=== PATIENT | female | born 1960 | race Caucasian/White ===

== ENCOUNTER → 2017-07-22 | Outpatient (CLI) | payer OTHER ==
--- NOTE | 2017-07-23 09:28 | MM ---
Reason for exam: screening (asymptomatic). Last mammogram was performed 2 years and 7 months ago. History: Patient is postmenopausal. Family history of breast cancer in grandmother at age 100. Physical Findings: A clinical breast exam by your physician is recommended on an annual basis and results should be correlated with mammographic findings. MG 3D Screening Mammo W/Cad Bilateral CC and MLO view(s) were taken. Prior study comparison: December 06, 2014, bilateral MG screening mammo w CAD. June 24, 2012, bilateral digital screening mammo w/CAD. The breast tissue is extremely dense which could obscure a lesion on mammography. Finding: There are typically benign calcifications in both breasts. No significant changes in finding since December 06, 2014 and June 24, 2012. ASSESSMENT: Benign, BI-RAD 2 RECOMMENDATION: Routine screening mammogram of both breasts in 1 year.
== END ==
LOC: RADMAMWWP 13:33
PROVIDERS: ATTEND Family Medicine
DX: Z12.31 Encounter for screening mammogram for malignant neoplasm of breast (principal)
CPT/HCPCS: 77063; G0202

== ENCOUNTER → 2017-08-06 | Outpatient (CLI) | payer OTHER ==
--- NOTE | 2017-08-06 17:26 | CT ---
EXAMINATION TYPE: CT abdomen pelvis wo con DATE OF EXAM: 08/06/2017 COMPARISON: NONE HISTORY: Left sided flank pain with hematuria CT DLP: 970 mGycm Automated exposure control for dose reduction was used. TECHNIQUE: Helical acquisition of images was performed from the lung bases through the pelvis. FINDINGS: The lung bases are clear of infiltrate. There is no pleural effusion. Liver spleen pancreas gallbladder appear normal. Bile ducts are not dilated. There is no adrenal mass. Kidneys have normal size and contour. There is no hydronephrosis. There is no retroperitoneal adenopathy. There is no ascites. There are surgical clips in the right lower quadr ant probably from appendectomy. Appendix is not seen. There are numerous diverticula in the sigmoid colon. I see no sign of diverticulitis. There is no asc ites. There are multiple diverticula in the left colon. I see no bony destructive process. Bladder di stends smoothly. There is no sign of a pelvic mass. IMPRESSION: COLONIC DIVERTICULOSIS. NO EVIDENCE OF DIVERTICULITIS. NO EVIDENCE OF RENAL MASS OR OBSTRUCTION.
== END | disposition home or self-care (01) ==
LOC: RADCTMAIN 16:44
PROVIDERS: ATTEND Family Medicine
DX: K57.30 Diverticulosis of large intestine without perforation or abscess without bleeding (principal); N20.0 Calculus of kidney
CPT/HCPCS: 74176

== ENCOUNTER → 2019-01-21 | Outpatient (CLI) | payer OTHER | END | disposition home or self-care (01) | LOC: LABPAT 13:49 | PROVIDERS: ATTEND Orthopaedic Surgery | DX: Z01.812 Encounter for preprocedural laboratory examination (principal) | CPT/HCPCS: 86850; 86900; 86901; 87070 ==

== ENCOUNTER 2019-01-25 06:18 | Inpatient (IN) | payer OTHER ==
[2019-01-22 10:00] VITALS: BMI 33.1
--- NOTE | 2019-01-24 12:14 | HP ---
HISTORY AND PHYSICAL REASON FOR ADMISSION: Surgery is scheduled for 01/25/2019. Yolie Roldan is a 58-year-old patient seen with symptomatic right hip osteoarthritis. We discussed options regarding treatment. She elected to proceed with right total hip arthroplasty. Consent regarding the procedure was obtained. Medical clearance was provided by Dr. Mayer's office. PAST MEDICAL HISTORY: Hypertension, hyperlipidemia. PAST SURGICAL HISTORY: Cardiac catheterization, hysterectomy. DAILY MEDICATIONS: Amlodipine, aspirin, atenolol, atorvastatin, isosorbide. ALLERGIES: SULFA AND PLAVIX. SOCIAL HISTORY: She denies current tobacco use. PHYSICAL EXAMINATION: Evaluation of the right hip: There is diffuse tenderness. Limited range of motion with pain. Positive hip impingement sign. Straight leg raise negative. Distal neurovascular exam intact. RADIOGRAPHS: Right hip revealed moderate to severe osteoarthritic changes. IMPRESSION: 1. Right hip osteoarthritis. 2. Hypertension. 3. Hyperlipidemia. 4. Coronary artery disease. PLAN: Direct anterior right total hip arthroplasty. Surgery scheduled for 01/25/2019. MMODL / IJN: [id number] /
[~2019-01-25 06:18] MED LIST: ACETAMINOPHEN TAB 500 MG TAB PO ONE; DEXAMETHASONE SOD PHOSPHATE 10 MG/ML 1 ML VIAL IV ONE; HYDROmorphone 0.5 MG/0.5 ML SYRINGE IVP PRN; LACTATED RINGERS 1,000 ML IV SCH; MELOXICAM 7.5 MG TAB PO ONE; MIDAZOLAM 2 MG/2 ML VIAL IV PRN; ONDANSETRON 4 MG/2 ML VIAL IVP ONE; SCOPOLAMINE 1.5MG/72HR PATCH TRANSDERM ONE; TRANEXAMIC ACID 1,000 MG in SODIUM CHLORIDE 0.9% 100 ML IVPB ONE; ceFAZolin IN SWFI 2 GM/20 ML SYRINGE IVP ONE
[2019-01-25] MEDS ORDERED: LIDOCAINE 1% 20 ML VIAL (10MG/ML) FOR IV START INTRADERMA ONE (07:01)
[2019-01-25] MEDS ORDERED: PROPOFOL 10 MG/ML 20 ML VIAL IV ONE (07:29)
[2019-01-25] MEDS ORDERED: SODIUM CHLORIDE 0.9% 100 ML BAG ONE (07:29)
[2019-01-25] MEDS ORDERED: ePHEDrine SULFATE/0.9% NACL/PF 50 MG/5 ML SYRINGE IV ONE (07:29)
[2019-01-25] MEDS ORDERED: TRANEXAMIC ACID 1,000 MG/10 ML VIAL ONE (07:29)
[2019-01-25] MEDS ORDERED: MIDAZOLAM 2 MG/2 ML VIAL ONE (07:29)
[2019-01-25] MEDS ORDERED: fentaNYL (PF) 50 MCG/ML 2 ML AMP ONE (07:29)
[2019-01-25] MEDS ORDERED: ceFAZolin 3,000 MG in SODIUM CHLORIDE 0.9% IRRIGATIO 3,000 ML IRRIGATION ONE (08:37)
[2019-01-25] MEDS ORDERED: ROPIVACAINE 246.25 MG, EPINEPHrine 0.5 MG, KETOROLAC 30 MG, WATER FOR INJECTION,STERILE... MISCELLANE ONE ×4 (08:48)
[2019-01-25] MEDS ORDERED: LACTATED RINGERS 1,000 ML IV ONE (09:03)
[2019-01-25] MEDS ORDERED: HYDROmorphone 0.5 MG/0.5 ML SYRINGE IVP PRN ×2 (09:32)
[2019-01-25] MEDS ORDERED: HYDROmorphone 1 MG/ML 1 ML SYRINGE IVP PRN (09:32)
[2019-01-25] MEDS ORDERED: traMADol 50 MG TAB PO PRN (09:32)
[2019-01-25] MEDS ORDERED: HYDROcodone/APAP 7.5-325MG 1 EACH TAB PO PRN (09:32)
[2019-01-25] MEDS ORDERED: NALOXONE 0.4 MG/ML 1 ML VIAL IV PRN (09:32)
[2019-01-25] MEDS ORDERED: ONDANSETRON 4 MG/2 ML VIAL IVP PRN (09:32)
--- NOTE | 2019-01-25 09:32 | P.OP ---
Date of Procedure: 01/25/19 Preoperative Diagnosis: Right hip osteoarthritis Postoperative Diagnosis: Same Procedure(s) Performed: Direct anterior right total hip arthroplasty Implants: 1. Depuy Corail KA size 10 with collar press-fit femoral stem 2. Depuy pinnacle 54 mm press-fit acetabular shell 3. Depuy pinnacle polyethylene acetabular liner neutral 54 mm OD 36 mm ID 4. Biolox delta ceramic femoral head +1.5 36 mm Anesthesia: local, spinal Surgeon: Xavi Navarro [employer] #1: Joce Trinh Estimated Blood Loss (ml): 100 Pathology: other (Femoral head) Condition: stable Disposition: PACU Indications for Procedure: 58-year-old patient seen with symptomatic right hip osteoarthritis. After having treatment options discussed, she elected to proceed with total hip arthroplasty. Operative Findings: See description of procedure Description of Procedure: The patient was taken to the operative suite. Patient underwent a spinal anesthetic by the department of anesthesia. Patient was then transferred to the Ray table. Patient was given preoperative IV antibiotics and TXA. Both lower extremities were placed in standard leg spars. The hip was then prepped and draped in the normal sterile orthopedic fashion. A standard anterior incision was made beginning 3 cm lateral and 1 cm distal to the ASIS extending 10 cm. Dissection was then carried down through the subcutaneous soft tissues down to the fascia overlying the tensor fascia dipak. An incision was now made through the fascia. Careful dissection was taken down exposing the tensor fascia dipak muscle. A Cobra retractor was now placed along the medial femoral neck and a second one along the lateral femoral neck. The venous circumflex vessels were now identified, cauterized and clipped. We identified the anterior hip capsule. An incision was made through the hip capsule along the lateral border. I performed a partial anterior capsulectomy. Retractors were now placed around the femoral neck itself. A femoral neck cut was now made with a sagittal saw. It was completed with an osteotome at the lateral neck area. The femoral head was now removed without difficulty. The extremity was now rotated to 45 of external rotation. It was locked in position. Residual labrum was now debrided out. Serial reaming was performed of the acetabulum while Jose Miguel CAMPOS assisted holding an anterior retractor for exposure. Once we reached the appropriate size and a trial was position and fit nicely. The appropriate size was now chosen opened and made available. It was introduced into the acetabulum without difficulty. The C-arm/fluoroscopy was now brought into the operative field. We made sure we had a true AP pelvic view. We now under direct C- arm/fluoroscopy introduced into the acetabular component with appropriate version and inclination. I held the cup in appropriate position well Jose Miguel CAMPOS used a mallet to seat the acetabular component. I noted the component now to be well seated and stable. Acetabular cup introduce her was removed. The C-arm was pulled back. An appropriate liner was introduced and clicked into position. It was felt to be stable. At this point retractors were removed. The extremity was now placed into 130 external rotation with no traction. The leg was now dropped to the ground and adducted. Appropriate retractors were now positioned along the proximal femur. We also placed our femoral look into position. Additional capsular releasing was performed to gain access to the proximal femur. We now used a box osteotome. A canal finder was now utilized. Serial broaching was now performed with the assistance of Jose Miguel CAMPOS tapping the broaches down with a mallet while held the broach in appropriate rotation and position. This was done until we reached the appropriate size with good overall rotational stability. Appropriate calcar planing was performed. A trial head/neck was placed into position. The hip was now reduced. The C-arm/fluoroscopy was brought back into the operative field. A spot film was obtained of the nonoperative hip. A spot film was obtained of the trial components. Overlays were performed, we noted good overall alignment and positioning for determining leg length. The C-arm/fluoroscopy was pulled back. Retractors were repositioned and the hip was dislocated. The leg was again taken down to the ground and adducted. Appropriate retractors were repositioned as well as the femoral hook. All trial components were removed. The femoral implant was opened along with the femoral head. The femoral implant was introduced on the appropriate handle into our pre-broached area. I held the component position well Jose Miguel CAMPOS used a mallet to seat the femoral component. The femoral component was now noted to be well seated and stable.. The femoral head was introduced with good positioning and fixation noted. Retractors were now removed. The hip was now reduced. There appeared be good positioning of the hip confirmed on intraoperative fluoroscopy. Spot films were obtained to document this. A second gram of TXA was given. The deep and superficial soft tissues were infiltrated with local analgesic. Bipolar cautery had been utilized intermittently through the procedure for hemostasis. The wound was irrigated copiously with pulse lavage mechanical irrigation. The fascia was repaired with Vicryl suture. The subcutaneous soft tissues were repaired in layers with Vicryl suture. The skin was approximated with pernio/Dermabond. Sterile dressings were applied. Patient was then awakened, transferred to a bed and taken to recovery in stable condition. Jose Miguel CAMPOS assisted with the complex procedure.
--- NOTE | 2019-01-25 11:04 | FL ---
Fluoroscopy HISTORY: Anterior right hip replacement 12 seconds fluoroscopy time supplied to the referring clinician. 1 intraoperative C-arm images docum ent the procedure. See dictated report from orthopedic surgery.
--- NOTE | 2019-01-25 11:04 | XR ---
Limited right hip HISTORY: Anterior hip replacement Single intraoperative C-arm image documents the procedure.
[2019-01-25] MEDS: LACTATED RINGERS 1,000 ML IV SCH ×2 (12:36→21:34)
--- NOTE | 2019-01-25 12:48 | P.CONS ---
History of Present Illness - Reason for Consult Consult date: 01/25/19 Medical management Requesting physician: Xavi Navarro - Chief Complaint Right total hip arthroplasty - History of Present Illness This is a 58-year-old female, patient of [facility]. She has a known past medical history of coronary artery disease with previous cardiac stents, myocardial infarction, hypertension, hyperlipidemia and nicotine dependence. Patient has been suffering with right hip pain and known osteoarthritis of the right hip underwent direct anterior approach of the right total hip arthroplasty with Dr. Navarro. Tolerated surgery well with no complications. She had 100 ML estimated blood loss. We have been consulted for medical management. Patient lying in bed comfortably. She is complaining of some pain today that's beginning in the right thigh area. She denies any chest pain or shortness of breath, nausea or vomiting, bowel movement changes or urinary symptoms. Review of Systems Please refer to HPI otherwise unremarkable Past Medical History Past Medical History: Coronary Artery Disease (CAD), Cancer, Eye Disorder, Hyperlipidemia, Hypertension, Myocardial Infarction (AR), Osteoarthritis (OA) Additional Past Medical History / Comment(s): HX GLAUCOMA, skin cancer. Last Myocardial Infarction Date:: 2001 History of Any Multi-Drug Resistant Organisms: None Reported Past Surgical History: Appendectomy, Ear Surgery, Heart Catheterization With St ent, Hysterectomy Additional Past Surgical History / Comment(s): STENT X3, skin cancer removed from left calf. Past Anesthesia/Blood Transfusion Reactions: No Reported Reaction Date of Last Stent Placement:: 06/2009 Past Psychological History: No Psychological Hx Reported Smoking Status: Current every day smoker Past Alcohol Use History: Occasional Additional Past Alcohol Use History / Comment(s): STARTED SMOKING ON AND OFF AT AGE 16, QUIT ONCE FOR 15 YRS. Has been smoking again for the last 4 yrs, 10 ciagrettes per day. Past Drug Use History: None Reported - Past Family History Mother Family Medical History: No Reported History Medications and Allergies Home Medications Medication Instructions Recorded Confirmed Type Ascorbic Acid [Vitamin C] 500 mg PO DAILY 07/19/15 01/25/19 History Atenolol 50 mg PO BID 07/19/15 01/25/19 History Atorvastatin [Lipitor] 20 mg PO HS 07/19/15 01/25/19 History Echinacea 400 mg PO DAILY 07/19/15 01/25/19 History Isosorbide Mononitrate [Isosorbide 30 mg PO QAM 07/19/15 01/25/19 History Mononitrate ER] Lisinopril 40 mg PO QAM 07/19/15 01/25/19 History Vitamin E (Dl,Tocopheryl Acet) 400 unit PO DAILY 08/13/17 01/25/19 History [Vitamin E] Aspirin [Adult Low Dose Aspirin EC] 81 mg PO DAILY 01/22/19 01/25/19 History amLODIPine [Norvasc] 5 mg PO HS 01/25/19 01/25/19 History Allergies Allergy/AdvReac Type Severity Reaction Status Date / Time clopidogrel bisulfate Allergy Rash/Hives Verified 01/25/19 11:53 [From Plavix] Sulfa (Sulfonamide Allergy Rash/Hives Verified 01/25/19 11:53 Antibiotics) Physical Exam Vitals: Vital Signs Temp Pulse Pulse Resp BP BP Pulse Ox 01/25/19 10:15 51 L 16 107/65 91 L 01/25/19 10:01 50 L 16 109/64 92 L 01/25/19 09:47 97 F L 53 L 16 106/63 94 L 01/25/19 06:53 97.9 F 52 L 18 134/68 97 Intake and Output 01/24/19 01/25/19 01/25/19 22:59 06:59 14:59 Intake Total 1501 Output Total 100 Balance 1401 Intake: IV 1501 Output: Estimated Blood Loss 100 Head normocephalic Neck supple Lungs clear to auscultation bilaterally no wheezing or crackles Heart regular rate and rhythm S1-S2, no rub or gallop Abdomen is soft nontender nondistended positive bowel sounds no hepatosplenomegaly Extremities no edema. Right hip dressing clean dry and intact. SCDs in place bilaterally Neuro alert and orientated to 3 Assessment and Plan Assessment: 1. Right hip osteoarthritis status post right total hip arthroplasty: Continue Lovenox for DVT prophylaxis, continue pain control per protocol. Continue PT OT 2. Essential hypertension: Systolic blood pressure 130s on room. We'll resume patient's lisinopril and Norvasc and metoprolol. Parameters placed around medications. 3. History of myocardial infarction 4. History of coronary artery disease with previous cardiac stents. Last was placed in 2008 5. Nicotine dependence: Discussed smoking cessation for greater than 3 minutes. Patient is trying to quit she smokes only occasionally now. Declines nicotine patch at this time GI prophylaxis Pepcid and DVT prophylaxis subcu Lovenox Thank you for this consultation. We will continue to follow along during patient's hospitalization. We will check CBC and CMP in a.m. Time with Patient: Greater than 30 (Greater than 50% of the total time spent in counseling and coordination of care.I performed an examination of the patient and discussed their management with the physician Vp Site. I have reviewed the Physician Vp Site's notes and agree with the documented findings and plan of care)
[2019-01-25] MEDS: HYDROcodone/APAP 7.5-325MG 1 EACH TAB PO PRN ×2 (16:29→23:07)
[2019-01-25] MEDS: ceFAZolin IN SWFI 2 GM/20 ML SYRINGE IVP SCH ×2 (16:30→23:07)
[2019-01-25] MEDS: ATENOLOL 50 MG TAB PO SCH (20:22)
[2019-01-25] MEDS ORDERED: ATORVASTATIN 20 MG TAB PO SCH (21:00)
[2019-01-25] MEDS ORDERED: SENNOSIDES-DOCUSATE SODIUM 1 EACH TAB PO SCH (21:00)
[2019-01-25] MEDS ORDERED: amLODIPine 5 MG TAB PO SCH (21:00)
[2019-01-26 07:37] LABS: Basophils % (A) 0 %; Eosinophils % (A) 0 %; HCT 38.2 % (34.0-46.0); HGB 12.6 gm/dL (11.4-16.0); Lymphocytes # (A) 0.9 k/uL (1.0-4.8); Lymphocytes % (A) 9 %; MCH 30.5 pg (25.0-35.0); MCV 92.7 fL (80.0-100.0); Mean Platelet Volume 7.9; Monocytes # (A) 0.6 k/uL (0-1.0); Monocytes % (A) 5 %; Neutrophils # (A) 8.9 k/uL (1.3-7.7); Neutrophils % (A) 85 %; Platelet Count 156 k/uL (150-450); RBC 4.13 m/uL (3.80-5.40); RDW 14.1 % (11.5-15.5); WBC 10.5 k/uL (3.8-10.6)
[2019-01-26 07:54] LABS: ALT 36 U/L (9-52); AST 60 U/L (14-36); Albumin 3.6 g/dL (3.5-5.0); Alkaline Phosphatase 73 U/L (38-126); Anion Gap 5 mmol/L; Blood Urea Nitrogen 12 mg/dL (7-17); Calcium 9.2 mg/dL (8.4-10.2); Carbon Dioxide 26 mmol/L (22-30); Chloride 109 mmol/L (98-107); Glucose 106 mg/dL (74-99); Potassium 4.4 mmol/L (3.5-5.1); Sodium 140 mmol/L (137-145); Total Bilirubin 0.5 mg/dL (0.2-1.3); Total Protein 5.7 g/dL (6.3-8.2)
[2019-01-26] MEDS: ATENOLOL 50 MG TAB PO SCH (07:59)
[2019-01-26] MEDS: HYDROcodone/APAP 7.5-325MG 1 EACH TAB PO PRN ×2 (07:59→13:43)
[2019-01-26 08:27] VITALS: BP 144/74; PULSE 56; RESP 16; TEMP 98.6
[2019-01-26] MEDS ORDERED: ENOXAPARIN 40 MG/0.4 ML SYRINGE SQ SCH (09:00)
[2019-01-26] MEDS ORDERED: MELOXICAM 7.5 MG TAB PO SCH (09:00)
[2019-01-26] MEDS ORDERED: ISOSORBIDE MONONITRATE ER 30 MG TAB.ER.24H PO SCH (09:00)
[2019-01-26] MEDS ORDERED: LISINOPRIL 20 MG TAB PO SCH (09:00)
[2019-01-26] MEDS ORDERED: ASCORBIC ACID 500 MG TAB PO SCH (09:00)
[2019-01-26] MEDS ORDERED: FAMOTIDINE 20 MG TAB PO SCH (09:00)
[2019-01-26] MEDS ORDERED: VITAMIN E (DL,TOCOPHERYL ACET) 400 UNIT CAP PO SCH (09:00)
--- NOTE | 2019-01-26 11:04 | P.PN ---
Subjective Progress Note Date: 01/26/19 This is a 58-year-old female, patient of [facility]. She has a known past medical history of coronary artery disease with previous cardiac stents, myocardial infarction, hypertension, hyperlipidemia and nicotine dependence. Patient has been suffering with right hip pain and known osteoarthr itis of the right hip underwent direct anterior approach of the right total hip arthroplasty with Dr. Navarro. Tolerated surgery well with no complications. She had 100 ML estimated blood loss. We have been consulted for medical management. Patient lying in bed comfortably. She is complaining of some pain today that's beginning in the right thigh area. She denies any chest pain or shortness of breath, nausea or vomiting, bowel movement changes or urinary symptoms. 01/26/2019 patient reports pain is controlled. She has worked with physical therapy. They're anticipating discharge this afternoon. She denies any chest pain or shortness breath. Denies any nausea or vomiting. Denies any urinary symptoms. Reports passing gas no bowel movement yet. Objective - Vital Signs Vital signs: Vital Signs Temp 98.6 F 01/26/19 07:37 Pulse 56 L 01/26/19 07:37 Resp 16 01/26/19 07:37 BP 144/74 01/26/19 07:37 Pulse Ox 95 01/26/19 07:37 Intake & Output 01/25/19 01/26/19 01/26/19 18:59 06:59 18:59 Intake Total 1741 1060 240 Output Total 100 Balance 1641 1060 240 Intake: IV 1501 Intake, IV Titration 80 Amount Lactated Ringers 1,000 ml 80 @ 80 mls/hr IV .[id number] [facility] Rx#:[id number] Oral 240 980 240 Output: Estimated Blood Loss 100 Other: Voiding Method Toilet # Voids 2 2 - Exam Head normocephalic Neck supple Lungs clear to auscultation bilaterally no wheezing or crackles Heart regular rate and rhythm S1-S2, no rub or gallop Abdomen is soft nontender nondistended positive bowel sounds no hepatosplenomegaly Extremities no edema right hip incision bruising noted no evidence of cellulitis or drainage Neuro alert and orientated to 3 - Labs CBC & Chem 7: 01/26/19 07:06 01/26/19 07:06 Labs: Abnormal Lab Results - Last 24 Hours (Table) 01/26/19 01/26/19 Range/Units 07:06 07:06 Neutrophils # 8.9 H (1.3-7.7) k/uL Lymphocytes # 0.9 L (1.0-4.8) k/uL Chloride 109 H (98-107) mmol/L Glucose 106 H (74-99) mg/dL AST 60 H (14-36) U/L Total Protein 5.7 L (6.3-8.2) g/dL Assessment and Plan Assessment: 1. Right hip osteoarthritis status post right total hip arthroplasty: Continue Lovenox for DVT prophylaxis, continue pain control per protocol. Continue PT OT 2. Essential hypertension: Blood pressures are stable. Continue home medications 3. History of myocardial infarction 4. History of coronary artery disease with previous cardiac stents. Last was placed in 2008 5. Nicotine dependence: Discussed smoking cessation for greater than 3 minutes. Patient is trying to quit she smokes only occasionally now. Patient is now wanting a nicotine patch for discharge 6. Elevated AST of 60. We'll hold the Lipitor. Repeat LFTs in 1 week. We'll have patient follow-up with PCP in 1 week I performed an examination of the patient and discussed their management with the physician Associate Professor. I have reviewed the Physician Associate Professor's notes and agree with the documented findings and plan of care
--- NOTE | 2019-01-26 12:19 | P.PN ---
Subjective Progress Note Date: 01/26/19 Principal diagnosis: Status post right total hip arthroplasty Patient evaluated at bedside, she's doing very well. Pain is well-controlled. She's ambulated well with therapy. She denies chest pain or shortness of breath Objective - Vital Signs Vital signs: Vital Signs Temp 98.6 F 01/26/19 07:37 Pulse 56 L 01/26/19 07:37 Resp 16 01/26/19 07:37 BP 144/74 01/26/19 07:37 Pulse Ox 95 01/26/19 07:37 Intake & Output 01/25/19 01/26/19 01/26/19 18:59 06:59 18:59 Intake Total 1741 1060 240 Output Total 100 Balance 1641 1060 240 Intake: IV 1501 Intake, IV Titration 80 Amount Lactated Ringers 1,000 ml 80 @ 80 mls/hr IV .[id number] [facility] Rx#:[id number] Oral 240 980 240 Output: Estimated Blood Loss 100 Other: Voiding Method Toilet # Voids 2 2 - Exam Right lower extremity: Incision is clean, dry, and intact. The exofin fusion tape is in good condition. There is minimal soft tissue swelling and ecchymosis surrounding the medial and lateral aspects of the incision. Calf is soft, no tenderness with palpation. Plantar flexion, dorsiflexion, EHL, FHL are intact. Sensory exam to light touch throughout the extremity is intact, dorsal pedis pulses 2+. - Labs CBC & Chem 7: 01/26/19 07:06 01/26/19 07:06 Labs: Abnormal Lab Results - Last 24 Hours (Table) 01/26/19 01/26/19 Range/Units 07:06 07:06 Neutrophils # 8.9 H (1.3-7.7) k/uL Lymphocytes # 0.9 L (1.0-4.8) k/uL Chloride 109 H (98-107) mmol/L Glucose 106 H (74-99) mg/dL AST 60 H (14-36) U/L Total Protein 5.7 L (6.3-8.2) g/dL Assessment and Plan Plan: Assessment: Postoperative day #1 status post direct anterior total hip arthroplasty Plan: Pain control, plan for discharge home on oral medication GI and DVT prophylaxis, aspirin 81 mg twice a day Wound care instructions were discussed Home physical therapy and nursing after discharge Medical recommendations Plan for discharge home today Time with Patient: Less than 30
--- NOTE | 2019-01-26 12:23 | P.DS ---
Providers Date of admission: 01/25/2019 Expected date of discharge: 01/26/19 Attending physician: Xavi Navarro Consults: 01/25/19 09:32 Consult Physician Routine Consulting Provider: Bryan Morales Consult Reason/Comments: Medical management Do you want consulting provider notified?: Yes Primary care physician: Linh Mayer [facility] Course: Date of admission: 01/25/2019 Date of discharge: 01/26/2019 Admission diagnosis: Status post direct anterior right total hip arthroplasty Discharge diagnosis: Same Attending physician: Dr. Navarro Surgical procedures: Direct anterior right total hip arthroplasty Brief history: Patient is a 58-year-old female with a history of progressive primary right hip osteoarthritis. At this point patient has failed conservative treatment measures and has opted to proceed with a elective direct anterior right total hip arthroplasty. Hospital course: Details of patient's surgery can be found in operative report. Patient tolerated the procedure well and was subsequently transported to orthopedic floor. Patient's orthopeidc and medical care was provided daily. Patient had daily laboratory tests performed for evaluation of overall blood counts. Patient had daily physical therapy to include strengthening range of motion as well as education with walker ambulation. Patient was treated with Lovenox for their postoperative DVT prophylaxis during their inpatient stay. Patient was noted to have a relatively uneventful postoperative course. Patient reported satisfactory pain control with oral pain medications by postoperative day 0. Patient showed satisfactory progress with physical therapy. Patient moved steadily through the program and had no difficulty meeting the goals by postoperative day 1. Given patient's otherwise satisfactory course and having met physical therapy goals, plan is to discharge patient home on postoperative day 1. Discharge condition/disposition: Patient will be discharged home in stable condition. Discharge medications: Instructions are given on resumption of patient's normal daily medications per primary care recommendation, in addition patient will be prescribed Buford 7.5 mg/325 mg, Colace 100 mg,. Discharge instructions: 1. Wound care and infection precautions, keep incision dry and covered while showering, no lotions, creams, moisturizers. No soaking, tubs, pools, hottubs. Do not scrub over the incision. 2. Weight-bear as tolerated with walker / cane until follow-up. 3. Ice and elevate when necessary. Do not exceed 20 minutes per hour with ice pack. 4. Utilize compression sleeve until seen at first follow up appointment. 5. Visiting nursing care. 6. Home physical therap. 7. Pain meds and anticoagulants per prescription. 8. Pain medication has potential to cause constipation. Increase oral fluid and fiber intake. Contact primary care provider if you have not had a bowel movement within 48 hours after discharge 9. No anti-inflammatory medication until discussed at first post operative visit, this including Motrin, Aleve, Mobic, Diclofenac. 10. Follow up in office at 2 weeks postop with Jose Miguel Trinh PA-C 11. Follow up with your primary care doctor 7-10 days after discharge. 12. Contact [facility] with any questions, . Procedures: Direct anterior total hip arthroplasty Patient Condition at Discharge: Good Plan - Discharge Summary Discharge Rx Participant: Yes New Discharge Prescriptions: New Nicotine 21Mg/24Hr Patch [Habitrol] 1 each TRANSDERM DAILY #30 patch Aspirin [Adult Low Dose Aspirin EC] 81 mg PO BID #60 tablet. Docusate [Colace] 100 mg PO DAILY #30 capsule HYDROcodone/APAP 7.5-325MG [Buford 7.5] 1 - 2 each PO Q6HR PRN #56 tab PRN Reason: Pain Continue Lisinopril 40 mg PO QAM Isosorbide Mononitrate [Isosorbide Mononitrate ER] 30 mg PO QAM Atenolol 50 mg PO BID Echinacea 400 mg PO DAILY Ascorbic Acid [Vitamin C] 500 mg PO DAILY Vitamin E (Dl,Tocopheryl Acet) [Vitamin E] 400 unit PO DAILY amLODIPine [Norvasc] 5 mg PO HS Discontinued Atorvastatin [Lipitor] 20 mg PO HS Discharge Medication List Ascorbic Acid [Vitamin C] 500 mg PO DAILY 07/19/15 [History] Atenolol 50 mg PO BID 07/19/15 [History] Echinacea 400 mg PO DAILY 07/19/15 [History] Isosorbide Mononitrate [Isosorbide Mononitrate ER] 30 mg PO QAM 07/19/15 [History] Lisinopril 40 mg PO QAM 07/19/15 [History] Vitamin E (Dl,Tocopheryl Acet) [Vitamin E] 400 unit PO DAILY 08/13/17 [History] amLODIPine [Norvasc] 5 mg PO HS 01/25/19 [History] Aspirin [Adult Low Dose Aspirin EC] 81 mg PO BID #60 tablet. 01/26/19 [Rx] Docusate [Colace] 100 mg PO DAILY #30 capsule 01/26/19 [Rx] HYDROcodone/APAP 7.5-325MG [Buford 7.5] 1 - 2 each PO Q6HR PRN #56 tab 01/26/19 [Rx] Nicotine 21Mg/24Hr Patch [Habitrol] 1 each TRANSDERM DAILY #30 patch 01/26/19 [Rx] Follow up Appointment(s)/Referral(s): [facility], [NON-STAFF] - Joce Trinh PAC [PHYSICIAN GENERAL ADMINISTRATOR] - 2 Weeks Linh Mayer DO [Primary Care Provider] - 1 Week Ambulatory/Diagnostic Orders: Comprehensive Metabolic Panel [LAB.AMB] Time Frame: 1 Week, Location: None Selected Activity/Diet/Wound Care/Special Instructions: Orthopedic Discharge Instructions: 1. Wound care and infection precautions, [keep incision dry and covered while showering], no lotions, creams, moisturizers. No soaking, pools, hot tubs. Do not scrub over incision. 2. Weight-bear [as tolerated] with walker / cane until follow-up. 3. Ice and elevate when necessary. Do not exceed 20 minutes per hour with ice pack. 4. Utilize compression sleeve until seen at first follow up appointment. 5. Pain meds and anticoagulants per prescription. 6. Pain medication has potential to cause constipation. Increase oral fluid and fiber intake. Contact primary care provider if you have not had a bowel movement within 48 hours after discharge. 7. No anti-inflammatory medication until discussed at first post operative visit, this including Motrin, Aleve, Mobic, Diclofenac. 8. Follow up in office at 2 weeks postop with Jose Miguel Trinh PA-C 9. Follow up with your primary care doctor 7-10 days after discharge. 10. Contact [facility] with any questions, . Discharge Disposition: HOME WITH HOME HEALTH SERVICES
== END 2019-01-26 13:55 | disposition home health service (06) | DRG 470 ==
LOC: OR 06:18 → 4SSUR 09:21 → OR 10:09 → 4SSUR 10:09
PROVIDERS: ADMIT Orthopaedic Surgery; ATTEND Orthopaedic Surgery
PROC: 0SR904A Replacement of Right Hip Joint with Ceramic on Polyethylene Synthetic Substitute, Uncemented, Open Approach (ICD-10-PCS; principal; 2019-01-25 07:30)
DX: M16.11 Unilateral primary osteoarthritis, right hip (principal); I08.1 Rheumatic disorders of both mitral and tricuspid valves; E78.5 Hyperlipidemia, unspecified; I10 Essential (primary) hypertension; I25.10 Atherosclerotic heart disease of native coronary artery without angina pectoris; E78.00 Pure hypercholesterolemia, unspecified; I25.2 Old myocardial infarction; H40.9 Unspecified glaucoma; Z71.6 Tobacco abuse counseling; F17.210 Nicotine dependence, cigarettes, uncomplicated; Z79.82 Long term (current) use of aspirin; Z79.899 Other long term (current) drug therapy; Z90.710 Acquired absence of both cervix and uterus; Z95.5 Presence of coronary angioplasty implant and graft; Z85.828 Personal history of other malignant neoplasm of skin; Z98.890 Other specified postprocedural states; Z88.2 Allergy status to sulfonamides; Z88.8 Allergy status to other drugs, medicaments and biological substances
CPT/HCPCS: 73501; 80053; 85025; 88300

== ENCOUNTER → 2022-12-10 | Outpatient (CLI) | payer OTHER, BC | END | disposition home or self-care (01) | LOC: LABWHC1 15:13 | PROVIDERS: ATTEND Internal Medicine Interventional Cardiology | DX: E03.9 Hypothyroidism, unspecified (principal) | CPT/HCPCS: 36415; 84443 ==

== ENCOUNTER → 2023-09-18 | Outpatient (CLI) | payer BC, OTHER ==
--- NOTE | 2023-09-20 17:00 | MM ---
Reason for Exam: Screening (asymptomatic). Last mammogram was performed 1 year(s) and 9 month(s) ago. Patient History: Menarche at age 11. First Full-Term at age 23. Hysterectomy at age 41. Postmenopausal. Maternal grandmother had breast cancer, age 100. Risk Values: Marj 5 year model risk: 1.4%. NCI Lifetime model risk: 5.8%. Prior Study Comparison: 12/06/2014 Bilateral Screening Mammogram, [facility]. 07/22/2017 Bilateral Screening Mammogram, [facility]. 12/07/2021 Bilateral Screening Mammogram, [facility]. Tissue Density: The breast tissue is extremely dense which could obscure a lesion on mammography. Findings: Analyzed By CAD. The pattern is symmetrical and stable. No significant interval changes. No suspicious groups of microcalcifications, spiculated or lobular masses, architectural distortion or other secondary signs of malignancy are mammographically apparent. Overall Assessment: Benign, BI-RAD 2 Management: Screening Mammogram of both breasts in 1 year. A negative mammogram report should not preclude additional follow up of suspicious palpable abnormalities. Patient should continue monthly self breast exam. A clinical breast exam by your physician is recommended on an annual basis and results should be correlated with mammographic findings. Electronically signed and approved by: Karan Verma D.O. Radiologis
== END | disposition home or self-care (01) ==
LOC: RADMAMWWP 14:14
PROVIDERS: ATTEND Family Medicine
DX: Z12.31 Encounter for screening mammogram for malignant neoplasm of breast (principal); Z80.3 Family history of malignant neoplasm of breast; Z78.0 Asymptomatic menopausal state
CPT/HCPCS: 77063; 77067

== ENCOUNTER 2023-11-27 07:09 | Day surgery (SDC) | payer BC, OTHER ==
[2023-11-27] MEDS: LACTATED RINGERS 1,000 ML IV SCH (07:34)
[2023-11-27 07:57] VITALS: TEMP 97.8
[2023-11-27] MEDS ORDERED: PROPOFOL 10 MG/ML 20 ML VIAL IV ONE (08:14)
--- NOTE | 2023-11-27 08:16 | P.GSHP ---
History of Present Illness H&P Date: 11/27/23 Chief Complaint: Screening colonoscopy This is a 63-year-old female who presents today for screening colonoscopy. Patient denies a significant GI complaints. Past Medical History Past Medical History: Coronary Artery Disease (CAD), Cancer, Eye Disorder, Hyperlipidemia, Hypertension, Myocardial Infarction ([place]), Osteoarthritis (OA), Thyroid Disorder Additional Past Medical History / Comment(s): Rectal bleeding past year intermittently. HX GLAUCOMA, skin cancer. Last Myocardial Infarction Date:: 2001 History of Any Multi-Drug Resistant Organisms: None Reported Past Surgical History: Appendectomy, Ear Surgery, Heart Catheterization With Stent, Hysterectomy, Joint Replacement Additional Past Surgical History / Comment(s): STENT X3, skin cancer removed from left calf, total R hip Past Anesthesia/Blood Transfusion Reactions: No Reported Reaction Additional Past Anesthesia/Blood Transfusion Reaction / Comment(s): Pt has had blood transfusion without reaction. Date of Last Stent Placement:: 06/2009 Smoking Status: Former smoker - Past Family History Father Family Medical History: Cancer Mother Family Medical History: COPD Medications and Allergies Home Medications Medication Instructions Recorded Confirmed Type Ascorbic Acid [Vitamin C] 500 mg PO HS 07/19/15 11/27/23 History Echinacea 760 mg PO HS 07/19/15 11/27/23 History Isosorbide Mononitrate [Isosorbide 30 mg PO QAM 07/19/15 11/27/23 History Mononitrate ER] lisinopriL 40 mg PO QAM 07/19/15 11/27/23 History Vitamin E (Dl,Tocopheryl Acet) 400 unit PO HS 08/13/17 11/27/23 History [Vitamin E (400 Iu = 180 mg)] amLODIPine [Norvasc] 5 mg PO HS 01/25/19 11/27/23 History Aspirin [Adult Low Dose Aspirin EC] 81 mg PO HS 11/25/23 11/27/23 History Atorvastatin [Lipitor] 40 mg PO HS 11/25/23 11/27/23 History Calcium Carbonate [Calcium] 600 mg PO QAM 11/25/23 11/27/23 History Cholecalciferol [Vitamin D3 (125 125 mcg PO QAM 11/25/23 11/27/23 History Mcg = 5000 Iu)] Docusate [Colace] 100 mg PO DAILY PRN 11/25/23 11/27/23 History Levothyroxine Sodium 25 mcg PO QAM 11/25/23 11/27/23 History Allergies Allergy/AdvReac Type Severity Reaction Status Date / Time clopidogrel bisulfate Allergy Rash/Hives Verified 11/27/23 07:27 [From Plavix] Sulfa (Sulfonamide Allergy Rash/Hives Verified 11/27/23 07:27 Antibiotics) Surgical - Exam Vital Signs Temp Pulse Resp BP Pulse Ox 97.8 F 92 16 138/97 98 11/27/23 07:35 11/27/23 07:35 11/27/23 07:35 11/27/23 07:35 11/27/23 07:35 - General well developed, well nourished, no distress - Eyes PERRL - ENT normal pinna - Neck no masses - Respiratory normal expansion - Cardiovascular Rhythm: regular - Abdomen Abdomen: soft, non tender Assessment and Plan Assessment: We'll perform screening colonoscopy.
--- NOTE | 2023-11-27 08:29 | P.OP ---
Date of Procedure: 11/27/23 Preoperative Diagnosis: Screening colonoscopy Postoperative Diagnosis: Diverticulosis Procedure(s) Performed: Colonoscopy Anesthesia: MAC Surgeon: Tyrell Benítez Pathology: none sent Condition: stable Disposition: PACU Description of Procedure: Patient's placed on the endoscopy table in the lateral position she received IV sedation. Digital rectal exam was performed. This revealed no abnormalities. The flexible colonoscope was then placed patient anus passed rotator colon. The ileocecal valve was visually is. The cecum, ascending and transverse colon. Normal. In the descending and sigmoid colon there is significant diverticular changes. There is severe diverticulosis of the sigmoid colon. The scope was then brought back the rectum and this appeared normal. Scope withdrawn for patient.
[2023-11-27 09:07] VITALS: BP 126/71; PULSE 69
[2023-11-27 09:08] VITALS: RESP 18
== END 2023-11-27 09:00 | disposition home or self-care (01) ==
LOC: ORWHC2ENDO 07:09
PROVIDERS: ATTEND Surgery
DX: Z12.11 Encounter for screening for malignant neoplasm of colon (principal); K57.30 Diverticulosis of large intestine without perforation or abscess without bleeding; I10 Essential (primary) hypertension; E78.5 Hyperlipidemia, unspecified; I25.2 Old myocardial infarction; I25.10 Atherosclerotic heart disease of native coronary artery without angina pectoris; E03.9 Hypothyroidism, unspecified; M19.90 Unspecified osteoarthritis, unspecified site; Z90.49 Acquired absence of other specified parts of digestive tract; Z95.5 Presence of coronary angioplasty implant and graft; Z90.710 Acquired absence of both cervix and uterus; Z85.828 Personal history of other malignant neoplasm of skin; Z87.891 Personal history of nicotine dependence; Z83.6 Family history of other diseases of the respiratory system; Z79.82 Long term (current) use of aspirin; Z79.890 Hormone replacement therapy; Z88.2 Allergy status to sulfonamides; Z98.890 Other specified postprocedural states; Z88.6 Allergy status to analgesic agent; Z96.60 Presence of unspecified orthopedic joint implant; Z79.899 Other long term (current) drug therapy
CPT/HCPCS: 45378; J2704

== ENCOUNTER → 2024-06-16 | Outpatient (CLI) | payer BC, OTHER ==
[2024-06-16 15:40] LABS: Chol/HDL Ratio 2.76 Ratio; LDL Cholesterol,Calculated 92.2 mg/dL (0.0-131.0)
== END | disposition home or self-care (01) ==
LOC: LABWHC1 09:13
PROVIDERS: ATTEND Internal Medicine Interventional Cardiology
CPT/HCPCS: 36415; 80061; 84443

== ENCOUNTER 2024-12-02 14:35 | Day surgery (SDC) | payer MEDICARE ==
[2024-11-30 08:47] VITALS: BMI 28.1
[~2024-12-02 14:35] MED LIST changes: -ACETAMINOPHEN TAB 500 MG TAB PO ONE; -DEXAMETHASONE SOD PHOSPHATE 10 MG/ML 1 ML VIAL IV ONE; -HYDROmorphone 0.5 MG/0.5 ML SYRINGE IVP PRN; +INDOCYANINE GREEN 25 MG VIAL IV ONE; -LACTATED RINGERS 1,000 ML IV SCH; +LIDOCAINE 1% (10MG/ML) FOR IV START INTRADERMA PRN; -MELOXICAM 7.5 MG TAB PO ONE; -MIDAZOLAM 2 MG/2 ML VIAL IV PRN; -ONDANSETRON 4 MG/2 ML VIAL IVP ONE; -SCOPOLAMINE 1.5MG/72HR PATCH TRANSDERM ONE; -TRANEXAMIC ACID 1,000 MG in SODIUM CHLORIDE 0.9% 100 ML IVPB ONE; -ceFAZolin IN SWFI 2 GM/20 ML SYRINGE IVP ONE
[2024-12-02] MEDS: IV FLUID CONTINUATION 1,000 ML IV ONE ×4 (15:08→21:10)
[2024-12-02] MEDS: DEXAMETHASONE SOD PHOSPHATE 4 MG/ML 1 ML VIAL IV ONE (15:31)
[2024-12-02] MEDS: LACTATED RINGERS 1,000 ML IV SCH (15:31)
[2024-12-02] MEDS: ONDANSETRON 4 MG/2 ML VIAL IVP ONE (15:31)
[2024-12-02 15:32] LABS: HCT 40.9 % (34.0-46.0); HGB 13.2 gm/dL (11.4-16.0); MCH 27.5 pg (25.0-35.0); MCHC 32.2 g/dL (31.0-37.0); MCV 85.5 fL (80.0-100.0); Mean Platelet Volume 7.3; Platelet Count 215 k/uL (150-450); RBC 4.79 m/uL (3.80-5.40); RDW 15.3 % (11.5-15.5); WBC 8.3 k/uL (3.8-10.6)
[2024-12-02] MEDS: MIDAZOLAM 2 MG/2 ML VIAL IV ONE (15:32)
[2024-12-02] MEDS: HEPARIN SODIUM,PORCINE 5,000 UNIT/ML 1 ML VIAL SQ PRN (15:37)
[2024-12-02 15:42] LABS: ALT 34 U/L (4-34); AST 39 U/L (14-36); Alkaline Phosphatase 89 U/L (38-126); Amylase 63 U/L (30-110); Bilirubin, Delta 0.1 mg/dL (0.0-0.2); Lipase 99 U/L (23-300); Total Bilirubin 1.1 mg/dL (0.2-1.3)
[2024-12-02 15:46] LABS: Partial Thromboplastin Time 23.4 sec (22.0-30.0); Prothrombin Time 11.4 sec (10.0-12.5)
[2024-12-02 16:57] LABS: Appearance,Urine Cloudy (Clear); Bilirubin,Urine Negative (Negative); Blood,Urine Trace (Negative); Color,Urine Yellow; Glucose,Urine (UA) Negative (Negative); Hyaline Casts,Urine 40 /lpf (0-2); Ketones,Urine 2+ (Negative); Leukocyte Esterase,Urine Negative (Negative); Mucus,Urine Many /hpf; Nitrite,Urine Negative (Negative); PH, Urine 5.5 (5.0-8.0); Protein,Urine Trace (Negative); RBC,Urine 3 /hpf (0-5); Specific Gravity,Urine 1.024 (1.001-1.035); Squamous Epithelial Cell,Urine 1 /hpf (0-4); Urobilinogen,Urine <2.0 mg/dL (<2.0); WBC,Urine 3 /hpf (0-5)
[2024-12-02 16:59] LABS: African American GFR (CKD) 76 (>60 ml/min/1.73 sqM); Anion Gap 13 mmol/L; Blood Urea Nitrogen 14 mg/dL (7-17); Calcium 10.1 mg/dL (8.4-10.2); Carbon Dioxide 22 mmol/L (22-30); Chloride 108 mmol/L (98-107); Glucose 91 mg/dL (74-99); Non-African American GFR(CKD) 66 (>60 ml/min/1.73 sqM); Potassium 3.9 mmol/L (3.5-5.1); Sodium 143 mmol/L (137-145)
[2024-12-02] MEDS: INDOCYANINE GREEN 25 MG VIAL IV STA (17:00)
[2024-12-02] MEDS ORDERED: GLYCOPYRROLATE 0.2 MG/ML 2 ML VIAL ONE (18:43)
[2024-12-02] MEDS ORDERED: LIDOCAINE 1% INJ 10MG/ML (20 ML MDV) ONE (18:43)
[2024-12-02] MEDS ORDERED: SUCCINYLCHOLINE CHLORIDE 200 MG/10 ML VIAL IV ONE (18:43)
[2024-12-02] MEDS ORDERED: ESMOLOL 100 MG/10 ML VIAL ONE (18:43)
[2024-12-02] MEDS ORDERED: fentaNYL (PF) 50 MCG/ML 2 ML AMP ONE (18:43)
[2024-12-02] MEDS ORDERED: PROPOFOL 10 MG/ML 20 ML VIAL IV ONE (18:43)
[2024-12-02] MEDS ORDERED: NEOSTIGMINE 1 MG/ML 10 ML VIAL ONE (18:43)
[2024-12-02] MEDS ORDERED: ROCURONIUM 10 MG/ML (5 ML VIAL) IV ONE (18:43)
[2024-12-02] MEDS ORDERED: KETOROLAC 15 MG/ML 1 ML VIAL ONE (18:43)
[2024-12-02] MEDS: BUPIVACAINE (PF) 0.25% 30 ML VIAL SQ ONE (19:01)
[2024-12-02] MEDS: LACTATED RINGERS 1,000 ML IV ONE (19:25)
[2024-12-02 19:27] LABS: GGT <3 U/L (0-38)
--- NOTE | 2024-12-02 19:39 | P.OP ---
Date of Procedure: 12/02/24 Preoperative Diagnosis: Biliary dyskinesia Postoperative Diagnosis: Biliary dyskinesia Procedure(s) Performed: Robotic cholecystectomy Anesthesia: WENDY Surgeon: Marc Dinh Pathology: other (Gallbladder and contents) Condition: stable Disposition: same day Indications for Procedure: 64-year-old female presents with complaint of right upper quadrant and epigastric abdominal pain. She has undergone workup with EGD that has been negative for any acute findings but findings of chronic gastritis. HIDA scan did show hyperkinetic gallbladder. Secondary to this, plan is for robotic cholecystectomy. Patient is aware of the risks, benefits and alternatives to the surgery including major surgical risks of bleeding, infection and biliary ductal injury. She is aware of success rates with indication of biliary hyperkinesia. Operative Findings: Distended gallbladder Description of Procedure: Patient was brought to the operating suite and placed in supine position on the operating table. Sedation was provided by anesthesia and the patient underwent endotracheal intubation. The patient was then prepped and draped in regular sterile fashion. An infraumbilical incision was made and dissection was carried to the fascia. The fascia was incised and an 8 mm trocar was placed. Pneumoperitoneum was achieved. The patient was then placed in appropriate position. 2 additional 8 mm trocars were placed in the right upper quadrant and 1 in the left upper quadrant. Robot was then docked. The gallbladder was then grasped and retracted superiorly and laterally. The gallbladder appeared distended. Dissection was carried along the infundibulum towards the cystic duct and the cystic duct was skeletonized. The cystic artery was similarly skeletonized and critical view was obtained. ICG was used to confirm anatomy. 2 clips were placed proximally on the cystic duct and 1 was placed distally and the cystic duct was ligated. Similarly, 2 clips were placed proximally on the cystic artery and 1 was placed distally and the cystic artery was ligated. Cautery was then used to dissect the gallbladder off of the gallbladder fossa. The gallbladder was then placed in an Endo Catch bag and removed from the abdomen from the infraumbilical incision site. Irrigation was placed in the right upper quadrant and suction. Hemostasis was noted to be maintained. No bile leakage was noted. No evidence of any intra-abdominal injury. The infra umbilical fascial incision was closed under direct visualization using an 0 Vicryl suture and Gino-Milagro device. Pneumoperitoneum was released. All ports removed from the abdomen. All port sites were closed with 4-0 Vicryl subcuticular suture. Sterile dressing was applied. The patient was taken to postanesthesia care unit in stable condition. Sponge and instrument count correct x 2.
[2024-12-02 19:56] VITALS: TEMP 97
[2024-12-02] MEDS: HYDROmorphone 0.5 MG/0.5 ML SYRINGE IVP PRN (20:07)
[2024-12-02 20:49] VITALS: BP 164/74; PULSE 69; RESP 18
== END 2024-12-02 21:15 | disposition home or self-care (01) ==
LOC: OR 14:35
PROVIDERS: ATTEND Surgery
DX: K81.1 Chronic cholecystitis (principal); K82.8 Other specified diseases of gallbladder; I10 Essential (primary) hypertension; I25.10 Atherosclerotic heart disease of native coronary artery without angina pectoris; E78.5 Hyperlipidemia, unspecified; Z95.5 Presence of coronary angioplasty implant and graft; E07.9 Disorder of thyroid, unspecified; N28.9 Disorder of kidney and ureter, unspecified; K21.9 Gastro-esophageal reflux disease without esophagitis; Z88.0 Allergy status to penicillin; Z88.8 Allergy status to other drugs, medicaments and biological substances; Z79.890 Hormone replacement therapy; Z79.899 Other long term (current) drug therapy; Z90.49 Acquired absence of other specified parts of digestive tract; Z90.710 Acquired absence of both cervix and uterus; Z98.890 Other specified postprocedural states
CPT/HCPCS: 80048; 82150; 82248; 82977; 83690; 84075; 84450; 84460; 85027; 85610; 85730; 81001; 47562; J2250; J0330; J1644; J1100; J2710; J0690; J2405; J2003; J3010; J1885; J2704; J1171; J0665; J1805; J1596; 88304